=== PATIENT | female | born 1990 ===

== ENCOUNTER → 2018-04-25 | Outpatient (CLI) | payer MEDICAID | END | disposition home or self-care (01) | LOC: U/S 12:46 | DX: O36.70X0 Maternal care for viable fetus in abdominal pregnancy, unspecified trimester, not applicable or unspecified (principal); Z3A.00 Weeks of gestation of pregnancy not specified | CPT/HCPCS: 76805 ==

== ENCOUNTER 2018-05-15 13:34 | Emergency (ER) | payer MEDICAID ==
[2018-05-15 15:35] LABS: ADD UMIC YES; UR ASCORBIC ACID NEGATIVE (NEGATIVE); UR BACTERIA FEW /HPF (NONE SEEN); UR BILIRUBIN (Dip) NEGATIVE (NEGATIVE); UR BLOOD (Dip) 1+ mg/dL (NEGATIVE); UR CLARITY CLEAR (CLEAR); UR COLOR YELLOW (YELLOW); UR GLUCOSE (Dip) NEGATIVE (NEGATIVE); UR KETONES (Dip) NEGATIVE (NEGATIVE); UR LEUKOCYTE ESTERASE (Dip) TRACE Leu/ul (NEGATIVE); UR NITRITE (Dip) NEGATIVE (NEGATIVE); UR RBC 0 /HPF (0-5); UR SPECIFIC GRAVITY (Dip) 1.009 (1.003-1.030); UR TOTAL PROTEIN (Dip) NEGATIVE (NEGATIVE); UR UROBILINOGEN (Dip) NEGATIVE (NEGATIVE); UR WBC 2 /HPF (0-5)
== END 2018-05-15 16:07 | disposition home or self-care (01) ==
LOC: FTE 13:34
DX: O20.9 Hemorrhage in early pregnancy, unspecified (principal); Z3A.18 18 weeks gestation of pregnancy
CPT/HCPCS: 76805; 81001; 99284-25

== ENCOUNTER 2018-06-05 11:49 | Outpatient (CLI) | payer MEDICAID | END 2018-06-05 14:14 | disposition home or self-care (01) | LOC: OBT 11:49 → L-D 11:49 → OBT 14:14 | DX: O26.872 Cervical shortening, second trimester (principal); Z3A.20 20 weeks gestation of pregnancy | CPT/HCPCS: Z7500 ==

== ENCOUNTER 2018-06-26 13:06 | Inpatient (IN) | payer MEDICAID ==
[2018-06-26 15:01] LABS: ADD UMIC YES; UR ASCORBIC ACID 20 mg/dL (NEGATIVE); UR BACTERIA FEW /HPF (NONE SEEN); UR BILIRUBIN (Dip) NEGATIVE (NEGATIVE); UR BLOOD (Dip) NEGATIVE (NEGATIVE); UR CLARITY CLEAR (CLEAR); UR COLOR YELLOW (YELLOW); UR GLUCOSE (Dip) NEGATIVE (NEGATIVE); UR KETONES (Dip) NEGATIVE (NEGATIVE); UR LEUKOCYTE ESTERASE (Dip) TRACE Leu/ul (NEGATIVE); UR NITRITE (Dip) NEGATIVE (NEGATIVE); UR RBC 0 /HPF (0-5); UR SPECIFIC GRAVITY (Dip) 1.011 (1.003-1.030); UR SQUAMOUS EPITHELIAL CELL FEW /HPF (FEW); UR TOTAL PROTEIN (Dip) NEGATIVE (NEGATIVE); UR UROBILINOGEN (Dip) NEGATIVE (NEGATIVE); UR WBC 1 /HPF (0-5)
[2018-06-26] MEDS: LACTATED RINGER'S 1,000 ML IV (15:11)
[2018-06-26] MEDS: MAGNESIUM SULFATE 4 GM/100 ML 100 ML IV (15:13)
[2018-06-26] MEDS: MAGNESIUM SULFATE 20 GM/500 ML 500 ML IV (15:14)
[2018-06-26] MEDS: INDOMETHACIN 25 MG PO ×3 (15:18→23:13)
[2018-06-26] MEDS: BETAMET NA PHOS/AC(6 MG/ML) 2 ML INJ SYG IM (15:35)
[2018-06-26] MEDS ORDERED: ACETAMINOPHEN 325 MG TAB PO (16:00)
[2018-06-26 19:52] LABS: MAGNESIUM 4.2 mg/dl (1.7-2.5)
[2018-06-26] MEDS ORDERED: PROGESTERONE 100 MG CAP VAG (21:00)
[2018-06-26] MEDS: PROGESTERONE 100 MG CAP VAG (23:13)
[2018-06-27] MEDS: LACTATED RINGER'S 1,000 ML IV ×2 (01:03→06:05)
[2018-06-27] MEDS: MAGNESIUM SULFATE 20 GM/500 ML 500 ML IV ×2 (01:10→11:50)
[2018-06-27 01:36] LABS: MAGNESIUM 4.9 mg/dl (1.7-2.5)
[2018-06-27] MEDS: INDOMETHACIN 25 MG PO ×2 (06:38→11:45)
[2018-06-27 07:37] LABS: MAGNESIUM 5.4 mg/dl (1.7-2.5)
[2018-06-27] MEDS ORDERED: FERROUS SULFATE (EC) 325 MG TAB PO (09:00)
[2018-06-27] MEDS ORDERED: DOCUSATE SODIUM 100 MG CAP PO (09:00)
[2018-06-27] MEDS ORDERED: PRENATAL VITAMIN PO (09:00)
[2018-06-27] MEDS: OXYMETAZOLINE 0.05% 15 ML NAS SPRAY NASAL (11:57)
[2018-06-27 12:25] LABS: MAGNESIUM 5.3 mg/dl (1.7-2.5)
[2018-06-27] MEDS: NIFEdipine 10 MG CAP PO (15:35)
[2018-06-27] MEDS: BETAMET NA PHOS/AC(6 MG/ML) 2 ML INJ SYG IM (15:53)
[2018-06-27] MEDS ORDERED: NIFEdipine 10 MG CAP PO (18:00)
== END 2018-06-27 17:30 | disposition home or self-care (01) | DRG 831 ==
LOC: L-D 13:06
DX: O26.872 Cervical shortening, second trimester (principal); O60.02 Preterm labor without delivery, second trimester; Z3A.23 23 weeks gestation of pregnancy
CPT/HCPCS: 81001; 83735

== ENCOUNTER 2018-08-24 13:41 | Inpatient (IN) | payer OTHER, MEDICAID ==
[2018-08-24 15:17] LABS: ADD UMIC YES; UR ASCORBIC ACID NEGATIVE (NEGATIVE); UR BACTERIA FEW /HPF (NONE SEEN); UR BILIRUBIN (Dip) NEGATIVE (NEGATIVE); UR BLOOD (Dip) NEGATIVE (NEGATIVE); UR CLARITY SLIGHTLY CLOUDY (CLEAR); UR COLOR YELLOW (YELLOW); UR GLUCOSE (Dip) NEGATIVE (NEGATIVE); UR KETONES (Dip) NEGATIVE (NEGATIVE); UR LEUKOCYTE ESTERASE (Dip) 2+ Leu/ul (NEGATIVE); UR NITRITE (Dip) NEGATIVE (NEGATIVE); UR RBC 0 /HPF (0-5); UR SPECIFIC GRAVITY (Dip) 1.012 (1.003-1.030); UR SQUAMOUS EPITHELIAL CELL FEW /HPF (FEW); UR TOTAL PROTEIN (Dip) NEGATIVE (NEGATIVE); UR UROBILINOGEN (Dip) NEGATIVE (NEGATIVE); UR WBC 5 /HPF (0-5)
[2018-08-24] MEDS: TERBUTALINE 1 MG/ML INJ SC ×2 (16:30→16:47)
[2018-08-24] MEDS: LACTATED RINGER'S 1,000 ML IV ×2 (16:47→21:37)
[2018-08-24 16:50] LABS: ADD MAN DIFF? NO
[2018-08-24 16:59] LABS: WHITE BLOOD COUNT 8.7 10^3/ul (4.8-10.8)
[2018-08-24 16:59] LABS: BASOPHILS % 0.2 % (0.0-2.0); EOSINOPHILS # 0.1 10^3/ul (0.0-0.5); EOSINOPHILS % 0.6 % (0.0-7.0); HEMOGLOBIN 14.3 g/dl (12.0-16.0); LYMPHOCYTES # 1.6 10^3/ul (0.8-2.9); LYMPHOCYTES % 18.6 % (15.0-51.0); MEAN CORPUSCULAR HEMOGLOBIN 30.5 pg (29.0-33.0); MEAN CORPUSCULAR HGB CONC 34.9 g/dl (32.0-37.0); MEAN CORPUSCULAR VOLUME 87.4 fl (82.0-101.0); MEAN PLATELET VOLUME 12.9 fl (7.4-10.4); MONOCYTES % 11.5 % (0.0-11.0); NEUTROPHILS % 68.5 % (39.0-77.0); PLATELET COUNT 203 10^3/UL (140-415); RED BLOOD COUNT 4.69 10^6/ul (4.20-5.40); RED CELL DISTRIBUTION WIDTH 13.2 % (11.5-14.5)
[2018-08-24 17:24] LABS: ALANINE AMINOTRANSFERASE 21 IU/L (13-69); ALBUMIN/GLOBULIN RATIO 0.93; ALKALINE PHOSPHATASE 156 IU/L (42-121); ANION GAP 12 (5-13); ASPARTATE AMINO TRANSFERASE 35 IU/L (15-46); BLOOD UREA NITROGEN 7 mg/dl (7-20); CALCIUM 9.8 mg/dl (8.4-10.2); CARBON DIOXIDE 20 mmol/L (21-31); CHLORIDE 106 mmol/L (97-110); CREATININE 0.42 mg/dl (0.44-1.00); Estimated GFR > 60 mL/min (>60); GLUCOSE 94 mg/dl (70-220); POTASSIUM 3.7 mmol/L (3.5-5.1); SODIUM 138 mmol/L (135-144); TOTAL PROTEIN 8.3 g/dl (6.1-8.1)
[2018-08-24 18:50] LABS: INR 0.85; PROTIME 11.7 Sec (11.9-14.9); PT RATIO 0.9
[2018-08-24 18:51] LABS: PARTIAL THROMBOPLASTIN TIME 28.5 Sec (23.0-35.0)
[2018-08-24] MEDS: MAGNESIUM SULFATE 4 GM/100 ML 100 ML IV (20:05)
[2018-08-24] MEDS: MAGNESIUM SULFATE 20 GM/500 ML 500 ML IV (20:44)
[2018-08-24] MEDS: BETAMET NA PHOS/AC(6 MG/ML) 2 ML INJ SYG IM (20:51)
[2018-08-24] MEDS: ENOXAPARIN 40 MG/0.4 ML SYG SC (21:03)
[2018-08-24] MEDS: ACETAMINOPHEN 325 MG TAB PO (21:39)
[2018-08-24] MEDS: PROGESTERONE 100 MG CAP VAG (21:53)
[2018-08-25 00:58] LABS: MAGNESIUM 4.6 mg/dl (1.7-2.5)
[2018-08-25] MEDS: MAGNESIUM SULFATE 20 GM/500 ML 500 ML IV ×2 (06:56→17:12)
[2018-08-25 07:45] LABS: MAGNESIUM 5.1 mg/dl (1.7-2.5)
[2018-08-25] MEDS: LACTATED RINGER'S 1,000 ML IV ×2 (08:30→10:47)
[2018-08-25] MEDS: DOCUSATE SODIUM 100 MG CAP PO (09:00)
[2018-08-25] MEDS: PRENATAL VITAMIN PO (09:14)
[2018-08-25] MEDS: FERROUS SULFATE (EC) 325 MG TAB PO (09:14)
[2018-08-25 12:23] LABS: MAGNESIUM 5.4 mg/dl (1.7-2.5)
[2018-08-25 15:23] LABS: RAPID PLASMA REAGIN NONREACTIVE (NR)
[2018-08-25] MEDS ORDERED: SALINE 0.65% 45 ML NAS SPRAY NASAL (19:00)
[2018-08-25 19:56] LABS: MAGNESIUM 5.4 mg/dl (1.7-2.5)
[2018-08-25] MEDS: BETAMET NA PHOS/AC(6 MG/ML) 2 ML INJ SYG IM (21:05)
[2018-08-25] MEDS: PROGESTERONE 100 MG CAP VAG (21:12)
[2018-08-25] MEDS: ENOXAPARIN 40 MG/0.4 ML SYG SC (21:34)
[2018-08-26] MEDS: SALINE 0.65% 45 ML NAS SPRAY NASAL (00:38)
[2018-08-26] MEDS: LACTATED RINGER'S 1,000 ML IV ×2 (00:43→13:56)
[2018-08-26 00:54] LABS: MAGNESIUM 5.4 mg/dl (1.7-2.5)
[2018-08-26] MEDS: MAGNESIUM SULFATE 20 GM/500 ML 500 ML IV ×2 (04:06→13:58)
[2018-08-26 07:59] LABS: MAGNESIUM 5.6 mg/dl (1.7-2.5)
[2018-08-26] MEDS: DOCUSATE SODIUM 100 MG CAP PO (09:00)
[2018-08-26] MEDS: PRENATAL VITAMIN PO (09:54)
[2018-08-26] MEDS: FERROUS SULFATE (EC) 325 MG TAB PO (09:55)
[2018-08-26] MEDS ORDERED: NIFEdipine 10 MG CAP PO (18:00)
[2018-08-26 18:45] LABS: FREE T4 (FREE THYROXINE) 0.73 ng/dl (0.79-2.35)
[2018-08-26 18:59] LABS: THYROID STIMULATING HORMONE 0.903 MIU/L (0.465-4.680)
[2018-08-29 14:46] LABS: PROTEIN C 94 % normal (70-180)
== END 2018-08-26 19:50 | disposition home or self-care (01) | DRG 831 ==
LOC: OBT 13:41 → L-D 13:41 → OBT 18:00 → L-D 18:00
DX: O26.873 Cervical shortening, third trimester (principal); O60.03 Preterm labor without delivery, third trimester; O99.113 Other diseases of the blood and blood-forming organs and certain disorders involving the immune mechanism complicating pregnancy, third trimester; D68.61 Antiphospholipid syndrome; Z3A.32 32 weeks gestation of pregnancy
CPT/HCPCS: 36415; 76817; 76818; 80053; 81001; 83735; 84439; 84443; 85025; 85302; 85305; 85610; 85730; 86592; 86850; 86900; 86901; 93005; 96360; 96361

== ENCOUNTER 2018-09-14 12:37 | Inpatient (IN) | payer OTHER ==
[2018-09-14 14:03] LABS: ADD MAN DIFF? NO
[2018-09-14 14:05] LABS: BASOPHILS % 0.4 % (0.0-2.0); EOSINOPHILS # 0.1 10^3/ul (0.0-0.5); EOSINOPHILS % 0.7 % (0.0-7.0); HEMATOCRIT 36.6 % (37.0-47.0); HEMOGLOBIN 12.6 g/dl (12.0-16.0); LYMPHOCYTES # 1.3 10^3/ul (0.8-2.9); LYMPHOCYTES % 18.4 % (15.0-51.0); MEAN CORPUSCULAR HEMOGLOBIN 30.6 pg (29.0-33.0); MEAN CORPUSCULAR HGB CONC 34.4 g/dl (32.0-37.0); MEAN CORPUSCULAR VOLUME 88.8 fl (82.0-101.0); MEAN PLATELET VOLUME 12.4 fl (7.4-10.4); MONOCYTE # 0.8 10^3/ul (0.3-0.9); MONOCYTES % 10.5 % (0.0-11.0); NEUTROPHIL # 4.9 10^3/ul (1.6-7.5); NEUTROPHILS % 69.3 % (39.0-77.0); PLATELET COUNT 159 10^3/UL (140-415); RED BLOOD COUNT 4.12 10^6/ul (4.20-5.40); RED CELL DISTRIBUTION WIDTH 13.5 % (11.5-14.5)
[2018-09-14 14:05] LABS: WHITE BLOOD COUNT 7.1 10^3/ul (4.8-10.8)
[2018-09-14 14:08] LABS: ADD UMIC YES; UR ASCORBIC ACID NEGATIVE (NEGATIVE); UR BACTERIA FEW /HPF (NONE SEEN); UR BILIRUBIN (Dip) NEGATIVE (NEGATIVE); UR BLOOD (Dip) NEGATIVE (NEGATIVE); UR CLARITY CLEAR (CLEAR); UR COLOR YELLOW (YELLOW); UR GLUCOSE (Dip) NEGATIVE (NEGATIVE); UR KETONES (Dip) NEGATIVE (NEGATIVE); UR LEUKOCYTE ESTERASE (Dip) 1+ Leu/ul (NEGATIVE); UR NITRITE (Dip) NEGATIVE (NEGATIVE); UR RBC 1 /HPF (0-5); UR SQUAMOUS EPITHELIAL CELL FEW /HPF (FEW); UR TOTAL PROTEIN (Dip) 1+ mg/dl (NEGATIVE); UR UROBILINOGEN (Dip) NEGATIVE (NEGATIVE); UR WBC 4 /HPF (0-5)
[2018-09-14 14:23] LABS: ALANINE AMINOTRANSFERASE 20 IU/L (13-69); ALBUMIN 3.2 g/dl (3.3-4.9); ALBUMIN/GLOBULIN RATIO 0.88; ALKALINE PHOSPHATASE 160 IU/L (42-121); ANION GAP 9 (5-13); ASPARTATE AMINO TRANSFERASE 32 IU/L (15-46); BLOOD UREA NITROGEN 8 mg/dl (7-20); CALCIUM 8.8 mg/dl (8.4-10.2); CARBON DIOXIDE 19 mmol/L (21-31); CHLORIDE 108 mmol/L (97-110); CREATININE 0.42 mg/dl (0.44-1.00); Estimated GFR > 60 mL/min (>60); GLUCOSE 108 mg/dl (70-220); POTASSIUM 3.8 mmol/L (3.5-5.1); SODIUM 136 mmol/L (135-144); TOTAL PROTEIN 6.8 g/dl (6.1-8.1); URIC ACID 7.1 mg/dl (3.1-7.9)
[2018-09-14 14:25] LABS: INR 0.91; PROTIME 12.4 Sec (11.9-14.9)
[2018-09-14 14:26] LABS: PARTIAL THROMBOPLASTIN TIME 27.4 Sec (23.0-35.0)
[2018-09-14] MEDS: BETAMET NA PHOS/AC(6 MG/ML) 2 ML INJ SYG IM (18:26)
[2018-09-14] MEDS: ENOXAPARIN 40 MG/0.4 ML SYG SC (21:02)
[2018-09-14] MEDS: LABETALOL 200 MG TAB PO (21:02)
[2018-09-14] MEDS: PRENATAL VITAMIN PO (21:03)
[2018-09-15 08:55] LABS: ADD MAN DIFF? NO
[2018-09-15 09:00] LABS: ABNORMAL IP MESSAGE 1; BASOPHILS % 0.1 % (0.0-2.0); EOSINOPHILS % 0.1 % (0.0-7.0); HEMATOCRIT 37.5 % (37.0-47.0); HEMOGLOBIN 12.8 g/dl (12.0-16.0); LYMPHOCYTES # 1.2 10^3/ul (0.8-2.9); LYMPHOCYTES % 13.8 % (15.0-51.0); MEAN CORPUSCULAR HEMOGLOBIN 30.3 pg (29.0-33.0); MEAN CORPUSCULAR HGB CONC 34.1 g/dl (32.0-37.0); MEAN CORPUSCULAR VOLUME 88.9 fl (82.0-101.0); MEAN PLATELET VOLUME 13.2 fl (7.4-10.4); MONOCYTE # 0.6 10^3/ul (0.3-0.9); MONOCYTES % 6.2 % (0.0-11.0); PLATELET COUNT 175 10^3/UL (140-415); RED BLOOD COUNT 4.22 10^6/ul (4.20-5.40); RED CELL DISTRIBUTION WIDTH 13.6 % (11.5-14.5)
[2018-09-15 09:14] LABS: POSITIVE DIFF @See below
[2018-09-15] MEDS: LABETALOL 200 MG TAB PO ×2 (09:14→21:29)
[2018-09-15 09:21] LABS: ALANINE AMINOTRANSFERASE 15 IU/L (13-69); ALBUMIN 3.5 g/dl (3.3-4.9); ALBUMIN/GLOBULIN RATIO 0.92; ALKALINE PHOSPHATASE 158 IU/L (42-121); ANION GAP 13 (5-13); ASPARTATE AMINO TRANSFERASE 36 IU/L (15-46); BLOOD UREA NITROGEN 8 mg/dl (7-20); CARBON DIOXIDE 16 mmol/L (21-31); CHLORIDE 109 mmol/L (97-110); CREATININE 0.32 mg/dl (0.44-1.00); Estimated GFR > 60 mL/min (>60); GLUCOSE 102 mg/dl (70-220); POTASSIUM 4.2 mmol/L (3.5-5.1); SODIUM 138 mmol/L (135-144); TOTAL PROTEIN 7.3 g/dl (6.1-8.1)
[2018-09-15] MEDS: CALCIUM CARBONATE 500 MG CHEW TAB PO (11:50)
[2018-09-15 12:39] LABS: URIC ACID 7.3 mg/dl (3.1-7.9)
[2018-09-15 15:18] LABS: COLLECTION PERIOD 24 hrs
[2018-09-15 16:17] LABS: COLLECTION PERIOD 24 hrs; SCRET 0.32 mg/dl (0.44-1.00)
[2018-09-15 16:18] LABS: VOLUME 3750 ml/24hrs; VOLUME 3750 mls
[2018-09-15 16:36] LABS: CREATININE CLEARANCE 297.1 mls/min (84.0-162.0); CREATININE,URINE RANDOM 36.51 mg/dl (20-320)
[2018-09-15] MEDS: PRENATAL VITAMIN PO (21:27)
[2018-09-15] MEDS: ENOXAPARIN 40 MG/0.4 ML SYG SC (21:31)
[2018-09-16] MEDS: LABETALOL 200 MG TAB PO ×2 (08:48→21:21)
[2018-09-16] MEDS: PRENATAL VITAMIN PO (21:21)
[2018-09-16] MEDS: ENOXAPARIN 40 MG/0.4 ML SYG SC (22:16)
[2018-09-17] MEDS: LABETALOL 200 MG TAB PO ×2 (08:55→22:06)
[2018-09-17] MEDS: PRENATAL VITAMIN PO (22:04)
[2018-09-17] MEDS: ENOXAPARIN 40 MG/0.4 ML SYG SC (22:06)
[2018-09-18] MEDS: LABETALOL 200 MG TAB PO ×2 (08:58→21:23)
[2018-09-18] MEDS ORDERED: MAGNESIUM HYDROXIDE 30ML CUP PO (20:30)
[2018-09-18] MEDS: PRENATAL VITAMIN PO (21:23)
[2018-09-18] MEDS: SENNA TAB PO (21:24)
[2018-09-18] MEDS: ENOXAPARIN 40 MG/0.4 ML SYG SC (22:19)
[2018-09-19 07:13] LABS: ADD MAN DIFF? NO
[2018-09-19 07:16] LABS: WHITE BLOOD COUNT 8.7 10^3/ul (4.8-10.8)
[2018-09-19 07:16] LABS: ABNORMAL IP MESSAGE 1; BASOPHILS % 0.2 % (0.0-2.0); EOSINOPHILS # 0.1 10^3/ul (0.0-0.5); EOSINOPHILS % 1.5 % (0.0-7.0); HEMATOCRIT 37.5 % (37.0-47.0); HEMOGLOBIN 12.4 g/dl (12.0-16.0); LYMPHOCYTES # 1.7 10^3/ul (0.8-2.9); LYMPHOCYTES % 19.5 % (15.0-51.0); MEAN CORPUSCULAR HEMOGLOBIN 30.1 pg (29.0-33.0); MEAN CORPUSCULAR HGB CONC 33.1 g/dl (32.0-37.0); MEAN PLATELET VOLUME 13.1 fl (7.4-10.4); MONOCYTE # 1.1 10^3/ul (0.3-0.9); MONOCYTES % 12.7 % (0.0-11.0); NEUTROPHIL # 5.6 10^3/ul (1.6-7.5); NEUTROPHILS % 64.5 % (39.0-77.0); PLATELET COUNT 169 10^3/UL (140-415); RED BLOOD COUNT 4.12 10^6/ul (4.20-5.40); RED CELL DISTRIBUTION WIDTH 14.1 % (11.5-14.5)
[2018-09-19 07:25] LABS: POSITIVE DIFF @See below
[2018-09-19 07:45] LABS: ALANINE AMINOTRANSFERASE 19 IU/L (13-69); ALBUMIN 3.2 g/dl (3.3-4.9); ALBUMIN/GLOBULIN RATIO 0.94; ALKALINE PHOSPHATASE 169 IU/L (42-121); ANION GAP 8 (5-13); ASPARTATE AMINO TRANSFERASE 24 IU/L (15-46); BLOOD UREA NITROGEN 9 mg/dl (7-20); CALCIUM 9.1 mg/dl (8.4-10.2); CARBON DIOXIDE 20 mmol/L (21-31); CHLORIDE 109 mmol/L (97-110); CREATININE 0.41 mg/dl (0.44-1.00); Estimated GFR > 60 mL/min (>60); GLUCOSE 82 mg/dl (70-220); POTASSIUM 4.1 mmol/L (3.5-5.1); SODIUM 137 mmol/L (135-144); TOTAL PROTEIN 6.6 g/dl (6.1-8.1)
[2018-09-19] MEDS: SENNA TAB PO ×2 (08:36→21:00)
[2018-09-19] MEDS: LABETALOL 200 MG TAB PO ×2 (08:36→21:55)
[2018-09-19] MEDS: FERROUS SULFATE (EC) 325 MG TAB PO (08:36)
[2018-09-19] MEDS ORDERED: PRENATAL VITAMIN PO (09:00)
[2018-09-19] MEDS: PRENATAL VITAMIN PO (21:54)
[2018-09-19] MEDS: ENOXAPARIN 40 MG/0.4 ML SYG SC (22:10)
[2018-09-20] MEDS: SENNA TAB PO ×2 (07:45→21:00)
[2018-09-20] MEDS: FERROUS SULFATE (EC) 325 MG TAB PO (08:39)
[2018-09-20] MEDS: LABETALOL 200 MG TAB PO ×2 (08:40→21:15)
[2018-09-20 11:31] LABS: SMOOTH MUSCLE AB SCREEN NEGATIVE (NEGATIVE)
[2018-09-20] MEDS: SALINE 0.65% 45 ML NAS SPRAY NASAL (13:54)
[2018-09-20] MEDS: PRENATAL VITAMIN PO (21:15)
[2018-09-20] MEDS: ENOXAPARIN 40 MG/0.4 ML SYG SC (21:17)
[2018-09-21] MEDS: FERROUS SULFATE (EC) 325 MG TAB PO ×2 (09:23→09:24)
[2018-09-21] MEDS: SENNA TAB PO ×2 (09:23→21:00)
[2018-09-21] MEDS: LABETALOL 200 MG TAB PO ×2 (09:25→21:15)
[2018-09-21] MEDS: PRENATAL VITAMIN PO (21:14)
[2018-09-21] MEDS: ENOXAPARIN 40 MG/0.4 ML SYG SC (22:48)
[2018-09-22] MEDS: SENNA TAB PO ×2 (07:46→21:00)
[2018-09-22] MEDS: LABETALOL 200 MG TAB PO ×2 (08:16→21:08)
[2018-09-22] MEDS: FERROUS SULFATE (EC) 325 MG TAB PO (08:19)
[2018-09-22] MEDS: PRENATAL VITAMIN PO (21:08)
[2018-09-22] MEDS: ENOXAPARIN 40 MG/0.4 ML SYG SC (22:32)
[2018-09-23] MEDS: SENNA TAB PO ×2 (07:35→21:00)
[2018-09-23] MEDS: LABETALOL 200 MG TAB PO ×2 (08:25→21:02)
[2018-09-23] MEDS: FERROUS SULFATE (EC) 325 MG TAB PO (08:25)
[2018-09-23] MEDS: PRENATAL VITAMIN PO (21:02)
[2018-09-24] MEDS: SENNA TAB PO (09:32)
[2018-09-24] MEDS: FERROUS SULFATE (EC) 325 MG TAB PO (09:34)
[2018-09-24] MEDS: LABETALOL 200 MG TAB PO ×2 (09:35→21:16)
[2018-09-24] MEDS ORDERED: OXYTOCIN 30 UNITS/LR 500 ML IV ×2 (11:00)
[2018-09-24] MEDS ORDERED: METHYLERGONOVINE 0.2 MG INJ IM (11:00)
[2018-09-24] MEDS ORDERED: BUTORPHANOL 2 MG INJ IV (11:00)
[2018-09-24] MEDS ORDERED: CARBOPROST 250 MCG INJ IM (11:00)
[2018-09-24] MEDS ORDERED: MISOPROSTOL 200 MCG TAB PR (11:00)
[2018-09-24] MEDS ORDERED: IBUPROFEN 600 MG TAB PO (11:00)
[2018-09-24 11:29] LABS: ADD MAN DIFF? NO
[2018-09-24 11:33] LABS: ABNORMAL IP MESSAGE 1; BASOPHILS % 0.5 % (0.0-2.0); EOSINOPHILS # 0.1 10^3/ul (0.0-0.5); EOSINOPHILS % 1.1 % (0.0-7.0); HEMATOCRIT 38.4 % (37.0-47.0); HEMOGLOBIN 12.9 g/dl (12.0-16.0); LYMPHOCYTES # 1.2 10^3/ul (0.8-2.9); LYMPHOCYTES % 16.1 % (15.0-51.0); MEAN CORPUSCULAR HEMOGLOBIN 30.6 pg (29.0-33.0); MEAN CORPUSCULAR HGB CONC 33.6 g/dl (32.0-37.0); MEAN PLATELET VOLUME 13.3 fl (7.4-10.4); MONOCYTE # 0.9 10^3/ul (0.3-0.9); MONOCYTES % 11.7 % (0.0-11.0); NEUTROPHIL # 5.1 10^3/ul (1.6-7.5); NEUTROPHILS % 69.4 % (39.0-77.0); PLATELET COUNT 179 10^3/UL (140-415); RED BLOOD COUNT 4.22 10^6/ul (4.20-5.40); RED CELL DISTRIBUTION WIDTH 14.4 % (11.5-14.5)
[2018-09-24 11:33] LABS: WHITE BLOOD COUNT 7.4 10^3/ul (4.8-10.8)
[2018-09-24 11:36] LABS: POSITIVE DIFF @See below
[2018-09-24 11:53] LABS: INR 0.85; PROTIME 11.7 Sec (11.9-14.9); PT RATIO 0.9
[2018-09-24 11:54] LABS: PARTIAL THROMBOPLASTIN TIME 28.1 Sec (23.0-35.0)
[2018-09-24 11:57] LABS: ALANINE AMINOTRANSFERASE 35 IU/L (13-69); ALBUMIN 3.2 g/dl (3.3-4.9); ALBUMIN/GLOBULIN RATIO 0.86; ALKALINE PHOSPHATASE 182 IU/L (42-121); ANION GAP 12 (5-13); ASPARTATE AMINO TRANSFERASE 44 IU/L (15-46); BLOOD UREA NITROGEN 9 mg/dl (7-20); CALCIUM 8.9 mg/dl (8.4-10.2); CARBON DIOXIDE 21 mmol/L (21-31); CHLORIDE 105 mmol/L (97-110); CREATININE 0.42 mg/dl (0.44-1.00); Estimated GFR > 60 mL/min (>60); GLUCOSE 114 mg/dl (70-220); SODIUM 138 mmol/L (135-144); TOTAL PROTEIN 6.9 g/dl (6.1-8.1)
[2018-09-24] MEDS: LACTATED RINGER'S 1,000 ML IV ×2 (18:28→22:35)
[2018-09-24] MEDS: OXYTOCIN 30 UNITS/LR 500 ML IV (18:31)
[2018-09-24 19:08] LABS: HEPATITIS B SURFACE ANTIGEN NEGATIVE (NEGATIVE)
[2018-09-24 19:45] LABS: RAPID PLASMA REAGIN NONREACTIVE (NR)
[2018-09-24] MEDS ORDERED: AMPICILLIN 2 GM/NS (PMX) 100 ML (21:37)
[2018-09-24] MEDS ORDERED: KETOROLAC 30 MG INJ IV (23:00)
[2018-09-24] MEDS ORDERED: ZOLPIDEM 5 MG TAB PO (23:00)
[2018-09-24] MEDS ORDERED: FENTAnyl 2MCG/ML-ROPIV 0.2% 100 ML BAG EPI (23:00)
[2018-09-24] MEDS ORDERED: ONDANSETRON 4 MG INJ IV (23:00)
[2018-09-24] MEDS ORDERED: HYDROmorphONE 0.5 MG/0.5 ML SYG IV ×2 (23:00)
[2018-09-24] MEDS ORDERED: DIPHENHYDRAMINE 50 MG INJ IV (23:00)
[2018-09-24] MEDS ORDERED: NALOXONE (0.4 MG/ML) INJ IV (23:00)
[2018-09-25] MEDS: MAGNESIUM SULFATE 3 GM in DEXTROSE 5% 100 ML IVPB (00:36)
[2018-09-25] MEDS: MAGNESIUM SULFATE 20 GM/500 ML 500 ML IV ×2 (01:05→21:23)
[2018-09-25] MEDS: LACTATED RINGER'S 1,000 ML IV (01:06)
[2018-09-25] MEDS ORDERED: MINERAL OIL LIGHT 10 ML VIAL (05:48)
[2018-09-25] MEDS: LIDOCAINE 1% (MPF) 30 ML INJ INJ (06:32)
[2018-09-25] MEDS: MINERAL OIL LIGHT 10 ML VIAL TOP (06:32)
[2018-09-25] MEDS: OXYTOCIN 30 UNITS/LR 500 ML IV ×2 (07:14→12:00)
[2018-09-25] MEDS ORDERED: IBUPROFEN 600 MG TAB (09:21)
[2018-09-25] MEDS: BENZOCAINE 20% 56 ML SPRAY TOP (09:24)
[2018-09-25] MEDS: IBUPROFEN 600 MG TAB PO ×2 (09:24→18:14)
[2018-09-25] MEDS ORDERED: HYDROCODONE/APAP (5/325) TAB PO ×2 (09:30)
[2018-09-25] MEDS ORDERED: METHYLERGONOVINE 0.2 MG INJ IM (09:30)
[2018-09-25] MEDS ORDERED: DIBUCAINE 1% 30 GM OINT TOP (09:30)
[2018-09-25] MEDS ORDERED: MISOPROSTOL 200 MCG TAB PR (09:30)
[2018-09-25] MEDS ORDERED: CARBOPROST 250 MCG INJ IM (09:30)
[2018-09-25] MEDS ORDERED: ZOLPIDEM 5 MG TAB PO (09:30)
[2018-09-25] MEDS ORDERED: OXYTOCIN 30 UNITS/LR 500 ML IV (09:30)
[2018-09-25] MEDS: CEPHALEXIN 500 MG CAP PO ×2 (12:27→18:14)
[2018-09-25] MEDS: LACTATED RINGER'S 1,000 ML IV* ×2 (17:03→21:24)
[2018-09-25] MEDS: WITCH HAZEL/GLYCERIN PAD PR (18:14)
[2018-09-25] MEDS: KETOROLAC 30 MG INJ IV (18:44)
[2018-09-25 19:17] LABS: MAGNESIUM 3.8 mg/dl (1.7-2.5)
[2018-09-25] MEDS: SENNA/DOCUSATE NA (8.6MG/50MG) TAB PO (21:17)
[2018-09-25] MEDS: MAGNESIUM HYDROXIDE 30ML CUP PO ×2 (21:17→21:19)
[2018-09-26] MEDS: CEPHALEXIN 500 MG CAP PO ×5 (00:26→23:46)
[2018-09-26] MEDS: IBUPROFEN 600 MG TAB PO ×5 (00:26→23:46)
[2018-09-26] MEDS: LANOLIN HPA 1 PKT TOP (00:35)
[2018-09-26] MEDS: LACTATED RINGER'S 1,000 ML IV* ×3 (01:03→17:03)
[2018-09-26 01:45] LABS: MAGNESIUM 3.8 mg/dl (1.7-2.5)
[2018-09-26] MEDS: MAGNESIUM SULFATE 20 GM/500 ML 500 ML IV (05:03)
[2018-09-26 06:43] LABS: ADD MAN DIFF? NO
[2018-09-26 06:45] LABS: BASOPHILS % 0.4 % (0.0-2.0); EOSINOPHILS # 0.1 10^3/ul (0.0-0.5); EOSINOPHILS % 0.7 % (0.0-7.0); HEMATOCRIT 33.8 % (37.0-47.0); HEMOGLOBIN 11.4 g/dl (12.0-16.0); LYMPHOCYTES # 1.8 10^3/ul (0.8-2.9); LYMPHOCYTES % 16.6 % (15.0-51.0); MEAN CORPUSCULAR HGB CONC 33.7 g/dl (32.0-37.0); MEAN CORPUSCULAR VOLUME 91.8 fl (82.0-101.0); MEAN PLATELET VOLUME 12.6 fl (7.4-10.4); MONOCYTE # 1.3 10^3/ul (0.3-0.9); MONOCYTES % 12.6 % (0.0-11.0); NEUTROPHIL # 7.3 10^3/ul (1.6-7.5); NEUTROPHILS % 68.8 % (39.0-77.0); PLATELET COUNT 153 10^3/UL (140-415); RED BLOOD COUNT 3.68 10^6/ul (4.20-5.40); RED CELL DISTRIBUTION WIDTH 14.2 % (11.5-14.5)
[2018-09-26 06:45] LABS: WHITE BLOOD COUNT 10.6 10^3/ul (4.8-10.8)
[2018-09-26] MEDS: SENNA/DOCUSATE NA (8.6MG/50MG) TAB PO ×2 (08:59→20:59)
[2018-09-26] MEDS: ENOXAPARIN 40 MG/0.4 ML SYG SC (09:01)
[2018-09-26] MEDS: MAGNESIUM HYDROXIDE 30ML CUP PO (21:00)
[2018-09-27] MEDS: IBUPROFEN 600 MG TAB PO ×2 (05:43→12:17)
[2018-09-27] MEDS: CEPHALEXIN 500 MG CAP PO ×2 (05:43→12:17)
[2018-09-27] MEDS: VARICELLA VACCINE LIVE/PF 1,350 UNIT/0.5 ML ML SC* (09:00)
[2018-09-27] MEDS: MAGNESIUM HYDROXIDE 30ML CUP PO (09:00)
[2018-09-27] MEDS: SENNA/DOCUSATE NA (8.6MG/50MG) TAB PO (09:33)
[2018-09-27] MEDS: ENOXAPARIN 40 MG/0.4 ML SYG SC (09:35)
[2018-09-27] MEDS: MEASLES,MUMPS,RUBELLA VACCINE INJ SC* (09:38)
[2018-09-27] MEDS: DIPHTH/TET/ACEL PERTUSS (ADULT) 0.5 ML VIAL IM* (12:12)
[2018-09-28 14:07] LABS: CHOLIC ACID 53.1 umol/L (< OR = 1.8); DEOXYCHOLIC ACID 3.2 umol/L (< OR = 2.4); TOTAL BILE ACIDS 72.3 umol/L (< OR = 6.8)
== END 2018-09-27 14:43 | disposition home or self-care (01) | DRG 806 ==
LOC: OBT 12:37 → L-D 09-24 17:47 → PP1 09-25 15:14 → L-D 12:37 → OBT 14:40 → L-D 09-24 18:05 → PP1 15:53
PROC: 10E0XZZ Delivery of Products of Conception, External Approach (ICD-10-PCS; principal; 2018-09-25)
PROC: 0HQ9XZZ Repair Perineum Skin, External Approach (ICD-10-PCS; 2018-09-25)
DX: O13.4 Gestational [pregnancy-induced] hypertension without significant proteinuria, complicating childbirth (principal); O26.873 Cervical shortening, third trimester; Z37.0 Single live birth; O99.12 Other diseases of the blood and blood-forming organs and certain disorders involving the immune mechanism complicating childbirth; D68.61 Antiphospholipid syndrome; O70.0 First degree perineal laceration during delivery; Z3A.37 37 weeks gestation of pregnancy
CPT/HCPCS: 62319; 76815; 76818; 80053; 81001; 82575; 83735; 83789; 84156; 84560; 85025; 85384; 85610; 85730; 86255; 86592; 86850; 86900; 86901; 87086; 87340; 90715; 90716

== ENCOUNTER 2018-10-27 14:47 | Emergency (ER) | payer OTHER ==
[2018-10-27 18:05] LABS: ADD MAN DIFF? NO
[2018-10-27 18:06] LABS: BASOPHILS % 0.4 % (0.0-2.0); EOSINOPHILS # 0.1 10^3/ul (0.0-0.5); EOSINOPHILS % 1.8 % (0.0-7.0); HEMATOCRIT 38.5 % (37.0-47.0); HEMOGLOBIN 13.1 g/dl (12.0-16.0); LYMPHOCYTES # 1.7 10^3/ul (0.8-2.9); LYMPHOCYTES % 24.4 % (15.0-51.0); MEAN CORPUSCULAR HEMOGLOBIN 29.8 pg (29.0-33.0); MEAN CORPUSCULAR VOLUME 87.7 fl (82.0-101.0); MEAN PLATELET VOLUME 10.8 fl (7.4-10.4); MONOCYTE # 0.6 10^3/ul (0.3-0.9); MONOCYTES % 8.5 % (0.0-11.0); NEUTROPHIL # 4.6 10^3/ul (1.6-7.5); NEUTROPHILS % 64.5 % (39.0-77.0); PLATELET COUNT 260 10^3/UL (140-415); RED BLOOD COUNT 4.39 10^6/ul (4.20-5.40); RED CELL DISTRIBUTION WIDTH 12.1 % (11.5-14.5)
[2018-10-27 18:06] LABS: WHITE BLOOD COUNT 7.1 10^3/ul (4.8-10.8)
[2018-10-27 18:13] LABS: ADD UMIC YES; UR ASCORBIC ACID NEGATIVE (NEGATIVE); UR BACTERIA FEW /HPF (NONE SEEN); UR BILIRUBIN (Dip) NEGATIVE (NEGATIVE); UR BLOOD (Dip) 3+ mg/dL (NEGATIVE); UR CLARITY CLEAR (CLEAR); UR COLOR RED (YELLOW); UR GLUCOSE (Dip) NEGATIVE (NEGATIVE); UR KETONES (Dip) NEGATIVE (NEGATIVE); UR LEUKOCYTE ESTERASE (Dip) TRACE Leu/ul (NEGATIVE); UR NITRITE (Dip) NEGATIVE (NEGATIVE); UR RBC > 182 /HPF (0-5); UR SPECIFIC GRAVITY (Dip) 1.003 (1.003-1.030); UR TOTAL PROTEIN (Dip) 2+ mg/dl (NEGATIVE); UR UROBILINOGEN (Dip) NEGATIVE (NEGATIVE); UR WBC 9 /HPF (0-5)
[2018-10-27 18:26] LABS: ALANINE AMINOTRANSFERASE 23 IU/L (13-69); ALBUMIN 4.4 g/dl (3.3-4.9); ALBUMIN/GLOBULIN RATIO 1.25; ALKALINE PHOSPHATASE 124 IU/L (42-121); ANION GAP 13 (5-13); ASPARTATE AMINO TRANSFERASE 26 IU/L (15-46); BILIRUBIN,INDIRECT 0.2 mg/dl (0-1.1); BILIRUBIN,TOTAL 0.2 mg/dl (0.2-1.3); BLOOD UREA NITROGEN 9 mg/dl (7-20); CALCIUM 9.2 mg/dl (8.4-10.2); CARBON DIOXIDE 25 mmol/L (21-31); CHLORIDE 107 mmol/L (97-110); CREATININE 0.51 mg/dl (0.44-1.00); Estimated GFR > 60 mL/min (>60); GLUCOSE 92 mg/dl (70-220); POTASSIUM 4.4 mmol/L (3.5-5.1); SODIUM 145 mmol/L (135-144); TOTAL PROTEIN 7.9 g/dl (6.1-8.1)
== END 2018-10-27 20:36 | disposition home or self-care (01) ==
LOC: FTE 20:36
DX: O72.1 Other immediate postpartum hemorrhage (principal); I10 Essential (primary) hypertension; Z79.01 Long term (current) use of anticoagulants
CPT/HCPCS: 36415; 76830; 76856; 80053; 81001; 81025; 85025; 99284-25